=== PATIENT | female | born 1955 | race Caucasian/White ===

== ENCOUNTER → 2016-05-06 | Outpatient (CLI) | payer OTHER ==
--- NOTE | 2016-05-06 14:02 | Diagnostic Imaging Report ---
Indication: ABD PAIN, hepatitis C Technique: Vargas-scale and duplex images of the upper abdomen were obtained Comparison: None Findings: No free fluid is demonstrated. Gallbladder is unremarkable, without stones, wall thickening, nor pericholecystic fluid. Common bile duct measures 11 mm in diameter. No intrahepatic biliary ductal dilatation. Liver demonstrates coarsened echogenicity, equivocal minimal surface nodularity. Is mildly enlarged. No focal abnormality. Portal vein and hepatic veins are patent.. Pancreas is unremarkable. Spleen is unremarkable. Left kidney measures 1.5 cm in length. Right kidney measures 11 cm length. Both kidneys demonstrate normal echogenicity. There is no hydronephrosis. No focal abnormality. . Non-aneurysmal abdominal aorta. Impression: Surgically absent gallbladder. There is dilatation of the common bile duct. Possibly related to age and postcholecystectomy state, downstream obstruction not excludable. Correlate with liver function tests, consider MRCP or hepatobiliary nuclear scanning for further evaluation if clinically indicated Coarsened hepatic echogenicity, consistent with known history of hepatocellular disease. Equivocal slight hepatic surface nodularity, could indicate cirrhosis if real. Borderline hepatomegaly No focal liver abnormality
== END | disposition home or self-care (01) ==
LOC: ULS 11:01
DX: B19.20 Unspecified viral hepatitis C without hepatic coma (principal); Z90.49 Acquired absence of other specified parts of digestive tract; R10.9 Unspecified abdominal pain
CPT/HCPCS: 76700